=== PATIENT | female | born 1960 | race Caucasian/White ===

== ENCOUNTER 2024-05-24 16:50 | Inpatient (IN) | payer BC, SELFPAY ==
[2024-05-24 17:28] VITALS: BP 119/72; PULSE 125; RESP 22; TEMP 39.5; O2SAT 96; BMI 49.9
--- NOTE | 2024-05-24 17:29 | PC.NURSE ---
sepsis alert called
[2024-05-24 17:40] VITALS: BP 115/79; PULSE 118; RESP 21; TEMP 39.2; O2SAT 95
[2024-05-24 18:05] LABS: Lactate (Lactic Acid) 1.6 mMol/L (0.4-2.0)
[2024-05-24 18:07] LABS: Basophils % (Auto) 0 % (0-2.5); Eosinophils % (Auto) 0 % (0-10); Hematocrit 39.7 % (36.0-46.0); Hemoglobin 13.4 g/dL (12.0-16.0); Immature Granulocytes % (Auto) 1 % (0-0); Immature Granulocytes Auto 0.05 Thou/mm3 (0.00-0.00); Lymphocytes # (Auto) 0.4 Thou/mm3 (1.0-4.8); Lymphocytes % (Auto) 4 % (10-50); Mean Corpuscular HGB Conc 33.8 g/dl (31.0-37.0); Mean Corpuscular Hemoglobin 27.7 pg (25.0-35.0); Mean Corpuscular Volume 82 fL (80-100); Monocytes # (Auto) 0.8 Thou/mm3 (0.0-0.8); Monocytes % (Auto) 8 % (0-12); Neutrophils # (Auto) 9.4 Thou/mm3 (1.8-7.7); Neutrophils % (Auto) 88 % (37-80); Nucleated Red Blood Cell % 0 /100 WBC (0); Platelet Count 193 Thou/mm3 (140-440); RDW Standard Deviation 44.4 fL (36.4-46.3); Red Blood Count 4.84 Miln/mm3 (4.00-5.20); White Blood Count 10.6 Thou/mm3 (3.6-11.0)
--- NOTE | 2024-05-24 18:23 | PD.EDFEVER ---
ED Fever RME/HPI General Chief Complaint: General Adult/Misc Complain Stated Complaint: UTI, SENT TO R/O SEPSIS Time Seen by Provider: 05/24/24 17:02 Arrival date/time: 05/24/24 16:50 RME / HPI RME / HPI Narrative: This section includes all my notes and documentations, including HPI, PE, and ED course. Hernando Messina MD HPI: 63-year-old female here with about 24-hour history of fever and severe chills and bodyaches and malaise. Equivocal dysuria and urinary frequency. No significant back pain or flank pain or abdominal pain. No other complaints. ROS: All negative except as documented in HPI. Physical Exam: General: Alert and oriented. Appearance of malaise noted. Fever noted. Eyes: Conjunctivae and lids clear. ENT: No nasal congestion. Neck: Supple. Heart: RRR. Lungs: No respiratory distress. Good air movement. No rhonchi, wheezing, rales. Abdomen: Soft and nontender. Normal bowel sounds. No distension. No rebound or guarding. Back: No CVA tenderness. Skin: Warm and dry. Neuro: Alert and oriented X 3. I reviewed all diagnostic test results. My interpretation of the chest x-ray is no acute findings. My review of the abdominal CT report is left pyelonephritis. Blood tests remarkable for ESR 58, CRP 22.1. UA showed leukocyte esterase, WBC, and bacteria. At this point, diagnoses include pyelonephritis. Treatment here included IV fluid, Zofran, Tylenol, Toradol, and Rocephin. Some improvement noted. I discussed the case with Dr. Shetty. About the presentation and exam and diagnostics and treatments here. And need of further care in the hospital. Will accept the patient. Hernando Messina MD Related Data Allergies Allergy/AdvReac Type Severity Reaction Status Date / Time No Known Allergies Allergy Verified 05/24/24 16:52 Course Quality Measures none Orders Category Date Time Status Admit to Inpatient Status Routine Admission 05/24/24 21:55 Active Bedside COVID-19 Antigen Test NOW Care 05/24/24 17:32 Active Bedside Influenza A&B Antigen Test NOW Care 05/24/24 17:32 Completed COVID-19 Screening Questionnaire NOW Care 05/24/24 21:51 Active Decision to Admit X1 Care 05/24/24 21:51 Completed Insert IV NOW Care 05/24/24 17:32 Active Straight [In and Out Catheter] X1 Care 05/24/24 18:23 Active Diet Regular Diet 05/25/[address] abdomen pelvis wo con Stat Exams 05/24/24 18:26 Completed XR chest 1V portable Stat Exams 05/24/24 18:26 Completed Blood Culture (Lab) Stat Lab 05/24/24 17:40 Received C-Reactive Protein Stat Lab 05/24/24 17:40 Completed CBC Stat Lab 05/24/24 17:40 Completed Comprehensive Metabolic Panel Stat Lab 05/24/24 17:40 Completed Lactate (Lactic Acid) Stat Lab 05/24/24 17:40 Completed Magnesium Stat Lab 05/24/24 17:40 Completed Procalcitonin Stat Lab 05/24/24 17:40 Completed Sed Rate (ESR) Stat Lab 05/24/24 17:40 Completed Urinalysis Stat Lab 05/24/24 19:47 Completed Urine Culture Stat Lab 05/24/24 19:47 Received Acetaminophen Ivpb [Ofirmev Inj] Med 05/24/24 18:24 Discontinued 1,000 mg in 100 ml IV X1 Ketorolac Inj [Toradol Inj] Med 05/24/24 18:24 Discontinued 30 mg IVP X1 ONE Ondansetron Inj [Zofran Inj] Med 05/24/24 21:24 Discontinued 4 mg IV X1 ONE Piper/Tazo 3.375 gm Premix [Zosyn] Med 05/25/24 00:00 Active 3.375 gm in 50 ml IV Q6HR Sodium Chloride 0.9% 1000 ml [Ns] 1,000 ml Med 05/24/24 21:58 Active IV 100 mls/hr Sodium Chloride 0.9% 1000 ml [Ns] 1,000 ml Med 05/24/24 17:32 Discontinued IV 999 mls/hr Sodium Chloride 0.9% 1000 ml [Ns] 1,000 ml Med 05/24/24 18:24 Discontinued IV 999 mls/hr Sodium Chloride 0.9% 1000 ml [Ns] 1,000 ml Med 05/24/24 18:25 Discontinued IV 999 mls/hr cefTRIAXone [Rocephin] 1,000 mg Med 05/24/24 18:24 Discontinued SODIUM CHLORIDE 0.9% (Popper) [Ns 0.9% (P)] 50 ml IV X1 Code Status Routine Oth 05/24/24 21:54 Ordered Vital Signs Vital signs: Vital Signs Temperature 103.1 F H 05/24/24 17:28 Pulse Rate 125 H 05/24/24 17:28 Respiratory Rate 22 H 05/24/24 17:28 Blood Pressure 119/72 05/24/24 17:28 Pulse Oximetry (%) 96 05/24/24 17:28 Oxygen Delivery Method Room Air 05/24/24 17:28 Fever Patient data External records reviewed:: None Clinical information provided by:: patient Social determinants that could affect healthcare access:: none Patient has the following chronic illnesses:: None How is presenting disease/condition affected by chronic disease/condition?: no chronic disease Evaluation data The following diagnostics were reviewed and interpreted by me:: lab results and radiology exam(s) Lab and/or radiology exams considered but not ordered:: None Interpretation Summary: Pyelonephritis Medications / Prescriptions Medications or Prescriptions considered but not ordered:: None Medication administrations:: Medication Administration History Sodium Chloride (Ns) 1,000 mls @ 100 mls/hr IV .Q10H JULIANO Stop: 06/23/24 21:57 Last Admin: 05/24/24 22:44 Dose: 100 mls/hr Documented By: ELHAM Piperacillin/Tazobactam/Dextrose (Zosyn) 3.375 gm in 50 mls @ 100 mls/hr IV Q6HR JULIANO Stop: 06/01/24 00:00 Last Admin: 05/24/24 23:42 Dose: 100 mls/hr Documented By: AZAEL Discontinued Medications Sodium Chloride (Ns) 1,000 mls @ 999 mls/hr IV .Q1H1M ONE Stop: 05/24/24 18:32 Last Infusion: 05/24/24 19:35 Dose: Infused Documented By: Admin: 05/24/24 18:34 Dose: 999 mls/hr Documented By: ARABELLA Acetaminophen (Ofirmev Inj) 1,000 mg in 100 mls @ 250 mls/hr IV X1 ONE Stop: 05/24/24 18:47 Last Infusion: 05/24/24 19:24 Dose: Infused Documented By: Admin: 05/24/24 19:00 Dose: 250 mls/hr Documented By: ARABELLA Ceftriaxone Sodium 1,000 mg/ (Sodium Chloride) 50 mls @ 100 mls/hr IV X1 ONE Stop: 05/24/24 18:53 Last Infusion: 05/24/24 19:20 Dose: Infused Documented By: Admin: 05/24/24 18:50 Dose: 100 mls/hr Documented By: ARABELLA Sodium Chloride (Ns) 1,000 mls @ 999 mls/hr IV .Q1H1M ONE Stop: 05/24/24 19:24 Last Infusion: 05/24/24 21:15 Dose: Infused Documented By: Admin: 05/24/24 19:54 Dose: 999 mls/hr Documented By: ELHAM Sodium Chloride (Ns) 1,000 mls @ 999 mls/hr IV .Q1H1M ONE Stop: 05/24/24 19:25 Last Infusion: 05/24/24 21:32 Dose: Infused Documented By: Admin: 05/24/24 20:34 Dose: 999 mls/hr Documented By: ELHAM Ketorolac Tromethamine (Ketorolac Inj 30 Mg/Ml Vial) 30 mg IVP X1 ONE Stop: 05/24/24 18:25 Last Admin: 05/24/24 18:51 Dose: 30 mg Documented By: ARABELLA Ondansetron HCl (Ondansetron Inj 2 Mg/Ml Inj 2 Ml) 4 mg IV X1 ONE; Protocol Stop: 05/24/24 21:25 Last Admin: 05/24/24 21:39 Dose: 4 mg Documented By: ELHAM Treatment from nj here included IV fluid, Zofran, Tylenol, Toradol, and Rocephin. Consultations Consultation(s) initiated? (list below): No Diagnosis Fever Differential Diagnosis: cellulitis, fever of unknown origin, gastroenteritis, community acquired pneumonia, pyelonephritis, viral infection, sepsis and influenza Most likely diagnosis given after review of the tests above:: Pyelonephritis Admission Indicated Admission indicated?: indicated Explain why admission is indicated or not indicated:: Pyelonephritis with fever and pending sepsis Admission Request Was there a request for admission?: Yes Admission Attestation Admission request attestation: Discussed case with Dr. Shetty regarding admission. Discussed patients ED course, exam findings, labs, and radiology results. Agrees to accept the patient for admission. Disposition Plan Disposition Plan: Admit Discharge Plan Plan Patient Disposition: Admit Acute Care w/in Hospital Disposition Comment: MED/SURG Patient condition on transfer: Stable Problem List Clinical Impression: Pyelonephritis
--- NOTE | 2024-05-24 18:26 | XR_ITS ---
Examination: CT abdomen and pelvis without contrast. Coronal 3-D reconstructions. Sagittal 2-D reconstructions. Date and time of exam:May 24, 2024 1948 hours INDICATIONS: Onset abdominal pain today CTDI: vol (mGy): 24.5 DLP: (mGycm): 1576 Technique: Axial images of the abdomen have been obtained, 3 mm slice thickness Intravenous contrast material has not been administered. Low dose protocols were performed. One or more of the following dose reduction techniques were used; automated exposure control, adjustment of the mA and/or KV according to patient size, use of iterative reconstruction technique. Findings: No focal liver or splenic lesions No pancreatic mass Bilateral parapelvic cysts [id number] left hydronephrosis with perinephric stranding, no ureteral calculi Aorta normal size Normal appendix No bowel obstruction No bladder mass IMPRESSION: Findings most consistent with left pyelonephritis including [id number] left hydronephrosis and perinephric stranding, clinical correlation advised No ureteral calculi
--- NOTE | 2024-05-24 18:26 | XR_ITS ---
Examination: AP chest single view TECHNIQUE: AP portable upright chest single view Standing spine: May 24, 2024 1919 hours Comparison October 19, 2007 INDICATIONS: Shortness of breath today. FINDINGS: Normal heart size. Lungs are clear. The osseous structures are intact IMPRESSION: No active disease
[2024-05-24] MEDS: SODIUM CHLORIDE 0.9% 1000 ML 1,000 ML 999 ML IV ×3 (18:34→20:34)
[2024-05-24] MEDS: cefTRIAXone 1,000 MG in SODIUM CHLORIDE 0.9% (Popper) 50 ML 100 MG IV (18:50)
[2024-05-24 18:51] VITALS: TEMP 39.2
[2024-05-24] MEDS: KETOROLAC INJ 30 MG/ML VIAL IVP (18:51)
[2024-05-24] MEDS: ACETAMINOPHEN IVPB 1,000 MG/100 ML VIAL 250 MG IV (19:00)
[2024-05-24 19:23] LABS: Alanine Aminotransferase 42 U/L (10-49); Albumin, Serum 4.2 gm/dL (3.4-4.8); Albumin/Globulin Ratio 1.6 (1.2-2.2); Alkaline Phosphatase 75 U/L (46-116); Anion Gap 11 (7-16); Aspartate Amino Transferase 44 U/L (0-34); BUN/Creatinine Ratio 13 Ratio (12-20); Bilirubin,Total 0.7 mg/dL (0.3-1.2); Blood Urea Nitrogen 16 mg/dL (9-23); Calcium 9.2 mg/dL (8.3-10.6); Calcium (Corrected) 9.2 mg/dL (8.5-10.1); Carbon Dioxide 24.2 mMol/L (20.0-31.0); Chloride 103 mMol/L (98-107); Creatinine (Component) 1.2 mg/dL (0.6-1.3); Globulin 2.6 gm/dL (2.3-3.5); Glucose 107 mg/dL (74-106); Osmolality,Calculated 276 (275-295); Potassium 3.7 mMol/L (3.4-5.1); Procalcitonin 0.69 ng/ml (0.0-0.49); Sodium 138 mMol/L (136-145); Total Protein 6.8 gm/dL (5.7-8.2); eGFR 51 See Note
[2024-05-24 19:29] LABS: Sed Rate (ESR) 58 mm/hr (0-30)
[2024-05-24 19:47] LABS: C-Reactive Protein 22.1 mg/dL (0.0-0.9); Magnesium 1.6 mg/dL (1.6-2.6)
[2024-05-24 19:50] VITALS: BP 114/87; PULSE 103; RESP 18; TEMP 37.3; O2SAT 96
[2024-05-24 20:01] LABS: Collection Type, Urine Clean Catch
[2024-05-24 20:25] LABS: Bacteria,Urine 1+; Bilirubin,Urine Negative (Negative); Blood,Urine 1+ (Negative); Clarity,Urine Turbid (Clear/Hazy); Color,Urine Yellow (Lt Yel-Yel); Glucose, Urine Negative (Negative); Ketones,Urine 1+ (Negative); Leukocyte Esterase,Urine Positive (Negative); Nitrite,Urine Positive (Negative); PH,Urine 6.5 (5.0-7.0); Protein,Urine 1+ (Neg - Trace); RBC,Urine 7 /hpf (0-3); Specific Gravity,Urine 1.011 (1.001-1.035); Squamous Epithelial Cell,Urine 3 /hpf (0-5); Urobilinogen,Urine Negative mg/dL (0.0-1.0); WBC,Urine 448 /hpf (0-5)
[2024-05-24] MEDS: ONDANSETRON INJ 2 MG/ML INJ 2 ML 4 MG IV (21:39)
--- NOTE | 2024-05-24 22:00 | ESHP_ITS ---
Documentation for date of: 05/25/24 [facility] History of Present Illness Chief complaint: Fever and chills History of present illness: 63-year-old female with no significant past medical history presented to the hospital with chief complaints of burning micturition, fever and bodyaches. Patient was apparently normal 3 days back since then patient started to have burning micturition for which she took cranberry juice, Azo following which the burning micturition was resolved but on the day of admission, patient developed chills for which she had a televisit with her doctor and later he referred her to go to the ED based on her current condition. Patient also stated that on the day of admission she had fever at home. Also stated that she had an episode of vomiting on the day of admission. Denies back pain, lower abdominal pain, shortness of breath, chest pain, palpitations. ED course: -Vitals at the time of admission showed blood pressure 119/72 mmHg, pulse rate 125 bpm, respiratory rate 22/min, temperature 103.1 ?F -Labs showed WBC 10.6, Hb 13.4, platelets 193, sodium 138, potassium 3.7, chloride 103, bicarb 24.2, BUN 16, creatinine 1.2, Procalcitonin is 0.69 -Urine analysis showed turbid urine with 1+ proteinuria, 1+ ketones, 1+ blood, positive nitrites, 448 WBC, 1+ bacteria -In the ED patient received ceftriaxone, ketorolac, IV fluids per sepsis protocol Past medical history: Nil significant Past surgical history: Cholecystectomy Social history: Denies smoking, alcohol, other illicit drug abuse Allergies: NKDA Review of Systems Review of Systems Narrative Review of Systems: Constitutional: No Weight Change, Fever, Chills, No Night Sweats, Fatigue, Malaise ENT/Mouth: No Hearing Changes, No Ear Pain, No Nasal Congestion, No Sinus Pain, No Hoarseness, No sore throat, No Rhinorrhea, No Swallowing Difficulty Eyes: No Eye Pain, No Swelling, No Redness, No Foreign Body, No Discharge, No Vision Changes Cardiovascular: No Chest Pain, No SOB, No PND, No Dyspnea on Exertion, No Orthopnea, No Edema, No Palpitations Respiratory: No Cough, No Sputum, No Wheezing, No Dyspnea Gastrointestinal: No Nausea, No Vomiting, No Diarrhea, No Constipation, No Pain, No Heartburn, No Anorexia, No Dysphagia, No Hematochezia, No Melena, No Flatulence, No Jaundice Genitourinary: No Dysuria, No Urinary Frequency, No Hematuria, No Urinary Incontinence, No Urgency, No Flank Pain, No Urinary Flow Changes, No Hesitancy Musculoskeletal: No Arthralgias, No Myalgias, No Joint Swelling, No Joint Stiffness, No Back Pain, No Neck Pain, No Injury History Skin: No Skin Lesions, No Pruritis Neuro: No Weakness, No Numbness, No Paresthesias, No Loss of Consciousness, No Syncope, No Dizziness, No Headache, No Coordination Changes, No Recent Falls Exam Vital Signs Temp Pulse Resp BP Pulse Ox O2 Del Method 98.7 F 85 18 117/70 96 Room Air 05/25/24 04:00 05/25/24 04:00 05/25/24 04:00 05/25/24 04:00 05/25/24 04:00 05/25/24 04:00 Narrative Exam General: Awake. Morbidly obese HEENT: Normocephalic, atraumatic, mucous membranes moist. Heart: Regular rate and rhythm, no murmurs. Lungs: Clear to auscultation with no wheezing or crackles. Abdomen: Soft, nondistended, nontender, positive bowel sounds. ?No guarding or rebound tenderness. Neurologic: Alert and oriented x3, no gross neurological deficit, and patient able to move all 4 extremities. Extremities: No edema. Skin: No rash or ecchymoses. Results: Labs 05/26/24 05:01 05/26/24 05:01 Labs: Short CBC 05/24/24 Range/Units 17:40 WBC 10.6 (3.6-11.0) Thou/mm3 Hgb 13.4 (12.0-16.0) g/dL Hct 39.7 (36.0-46.0) % Plt Count 193 (140-440) Thou/mm3 BMP 05/24/24 17:40 Sodium 138 Potassium 3.7 Chloride 103 Carbon Dioxide 24.2 BUN 16 Creatinine 1.2 Glucose 107 H Calcium 9.2 Liver Function 05/24/24 Range/Units 17:40 Total Bilirubin 0.7 (0.3-1.2) mg/dL AST 44 H (0-34) U/L ALT 42 (10-49) U/L Alkaline Phosphatase 75 (46-116) U/L Albumin 4.2 (3.4-4.8) gm/dL Urine 05/24/24 Range/Units 19:47 Urine Color Yellow (Lt Yel-Yel) Urine Clarity Turbid A (Clear/Hazy) Urine pH 6.5 (5.0-7.0) Ur Specific [place] 1.011 (1.001-1.035) Urine Protein 1+ A (Neg - Trace) Urine Glucose (UA) Negative (Negative) Quality Measures Quality Measures none Medications Home Medications and Allergies Allergies Allergy/AdvReac Type Severity Reaction Status Date / Time No Known Allergies Allergy Verified 05/24/24 16:52 Visit Medications Sodium Chloride (Ns) 1,000 mls @ 100 mls/hr IV .Q10H JULIANO Stop: 06/23/24 21:57 Last Admin: 05/24/24 22:44 Dose: 100 mls/hr Piperacillin/Tazobactam/Dextrose (Zosyn) 3.375 gm in 50 mls @ 100 mls/hr IV Q6HR JULIANO Stop: 06/01/24 00:00 Last Admin: 05/25/24 06:00 Dose: 100 mls/hr Discontinued Medications Sodium Chloride (Ns) 1,000 mls @ 999 mls/hr IV .Q1H1M ONE Stop: 05/24/24 18:32 Last Infusion: 05/24/24 19:35 Dose: Infused Acetaminophen (Ofirmev Inj) 1,000 mg in 100 mls @ 250 mls/hr IV X1 ONE Stop: 05/24/24 18:47 Last Infusion: 05/24/24 19:24 Dose: Infused Ceftriaxone Sodium 1,000 mg/ (Sodium Chloride) 50 mls @ 100 mls/hr IV X1 ONE Stop: 05/24/24 18:53 Last Infusion: 05/24/24 19:20 Dose: Infused Sodium Chloride (Ns) 1,000 mls @ 999 mls/hr IV .Q1H1M ONE Stop: 05/24/24 19:24 Last Infusion: 05/24/24 21:15 Dose: Infused Sodium Chloride (Ns) 1,000 mls @ 999 mls/hr IV .Q1H1M ONE Stop: 05/24/24 19:25 Last Infusion: 05/24/24 21:32 Dose: Infused Ketorolac Tromethamine (Ketorolac Inj 30 Mg/Ml Vial) 30 mg IVP X1 ONE Stop: 05/24/24 18:25 Last Admin: 05/24/24 18:51 Dose: 30 mg Ondansetron HCl (Ondansetron Inj 2 Mg/Ml Inj 2 Ml) 4 mg IV X1 ONE; Protocol Stop: 05/24/24 21:25 Last Admin: 05/24/24 21:39 Dose: 4 mg Assessment & Plan Plan 63-year-old female with no significant past medical history presented to the hospital with complaints of fever, burning micturition and chills # Sepsis # Secondary to left pyelonephritis # Gram-negative bacteremia -Presented to the hospital with complaints of fever with chills, burning micturition since 3 days -Burning micturition relieved after taking Azo -Patient fits into sepsis criteria = pulse rate 125, respiratory rate 22, temperature 103.1 ?F + UTI/pyelonephritis -Urine analysis showed turbid urine with 1+ proteinuria, 1+ ketonuria, 1+ blood, 448 WBC, 1+ bacteria,procalcitonin is elevated -Abdomen/pelvis CT showedMild to moderate left hydronephrosis with perinephric stranding, no ureteral calculi with findings consistent with left pyelonephritis -Patient received fluids according to sepsis protocol in the ED Plan -Blood cultures sent -Started on Zosyn [05/24- -Will modify antibiotics according to the culture -Zofran as needed # REYES versus CKD -Baseline creatinine is 0.9 in 2018 -Creatinine at the time of admission is 1.2 Plan -Will continue to monitor renal functions -Will measure urine albumin creatinine ratio in outpatient setting after urinary tract infection is resolved -Avoid nephrotoxic medications and renally dose medications Hospital Maintenance: Dispo: MedSurg DVT ppx: Lovenox GI ppx: Not needed Diet: Regular IV lines: Peripheral Code status: Full code Patient plan of care was discussed with the attending physician, Dr. Diogenes Rankin, PGY1 Attending Provider Attestation/Addendum Patient seen and examined with resident physician Dr. Ryan. Note reviewed, agree with findings and recommendations. Patient admitted with weakness and noted to have pyelonephritis. Was started on IV fluids, broad-spectrum antibiotic pending cultures. CT abdomen showed pyelonephritis. No hydronephrosis. Estimated length of stay 2 to 3 days DVT prophylaxis ambulate GI prophylaxis not needed Disposition Home
[2024-05-24] MEDS: SODIUM CHLORIDE 0.9% 1000 ML 1,000 ML 100 ML IV (22:44)
[2024-05-24 23:11] VITALS: BMI 53.4
[2024-05-24] MEDS: PIPER/TAZO 3.375 GM PREMIX 3.375 GM/50 ML BAG IV (23:42)
[2024-05-25] VITALS: BP 119/74; PULSE 92; RESP 18; TEMP 36.7; O2SAT 96
[2024-05-25 04:00] VITALS: BP 117/70; PULSE 85; RESP 18; TEMP 37.1; O2SAT 96
[2024-05-25] MEDS: PIPER/TAZO 3.375 GM PREMIX 3.375 GM/50 ML BAG IV ×4 (06:00→23:39)
[2024-05-25 08:00] VITALS: BP 128/71; PULSE 84; RESP 16; TEMP 36.6; O2SAT 96
[2024-05-25 12:00] VITALS: BP 127/73; PULSE 82; RESP 18; TEMP 36.2; O2SAT 95
[2024-05-25] MEDS: SODIUM CHLORIDE 0.9% 1000 ML 1,000 ML 100 ML IV ×2 (12:09→23:37)
--- NOTE | 2024-05-25 12:31 | PC.SS ---
Doris Zapata is 63-year-old female admitted to Med-Surg for Pyelonephritis. SS conducted bedside contact with the patient to complete initial assessment and to discuss discharge planning.? Patient confirmed demographic information. Patient identifies her sister Ying Flanagan [phone] ?as her surrogate decision maker. Patient resides at home alone, (pt reports recently passed on Thursday). Pt states she is able to complete all ADL?s independently, no need for any source of DME. Pts PCP is Dr. Shetty and her pharmacy of choice is [facility]. DC options discussed Pts family will provide transportation upon DC. No further intervention required at this time, social media content manager would be available to address any further concerns. DC Plan: Home Contact: Sister Ying PCP: Diogenes
[2024-05-25 16:00] VITALS: BP 128/79; PULSE 91; RESP 16; TEMP 37.1; O2SAT 95
[2024-05-25] MEDS: ONDANSETRON INJ 2 MG/ML INJ 2 ML 4 MG IV (18:01)
[2024-05-25] MEDS: ACETAMINOPHEN 325 MG TABLET 650 MG PO (18:01)
--- NOTE | 2024-05-25 18:12 | PD.RESPRO ---
Documentation for date of: 05/25/24 Subjective Subjective Interval history: Patient is seen and examined at bedside. No acute overnight events. No further febrile episodes noted. Reported that she is feeling better since yesterday Will continue antibiotics for now Exam Vital Signs Temp Pulse Resp BP Pulse Ox O2 Del Method 98.7 F 91 16 128/79 95 Room Air 05/25/24 16:00 05/25/24 16:00 05/25/24 16:00 05/25/24 16:00 05/25/24 16:00 05/25/24 16:00 Narrative Exam General: Awake. Morbidly obese HEENT: Normocephalic, atraumatic, mucous membranes moist. Heart: Regular rate and rhythm, no murmurs. Lungs: Clear to auscultation with no wheezing or crackles. Abdomen: Soft, nondistended, nontender, positive bowel sounds. ?No guarding or rebound tenderness. Neurologic: Alert and oriented x3, no gross neurological deficit, and patient able to move all 4 extremities. Extremities: No edema. Skin: No rash or ecchymoses. Objective Labs 05/26/24 05:01 05/26/24 05:01 Labs: Laboratory Results - last 24 hr 05/24/24 05/24/24 17:40 19:47 ESR 58 H Sodium 138 Potassium 3.7 Chloride 103 Carbon Dioxide 24.2 Anion Gap 11 BUN 16 Creatinine 1.2 Estim Creat Clear Calc 68.0 eGFR 51 L BUN/Creatinine Ratio 13 Glucose 107 H Calculated Osmolality 276 Lactic Acid 1.6 Calcium 9.2 Corrected Calcium 9.2 Magnesium 1.6 Total Bilirubin 0.7 AST 44 H ALT 42 Alkaline Phosphatase 75 C-Reactive Prot, Quant 22.1 H Total Protein 6.8 Albumin 4.2 Globulin 2.6 Albumin/Globulin Ratio 1.6 Procalcitonin 0.69 H Ur Collection Type Clean Catch Urine Color Yellow Urine Clarity Turbid A Urine pH 6.5 Ur Specific [place] 1.011 Urine Protein 1+ A Urine Glucose (UA) Negative Urine Ketones 1+ A Urine Blood 1+ A Urine Nitrite Positive Urine Bilirubin Negative Urine Urobilinogen (Auto) Negative Ur Leukocyte Esterase Positive Urine RBC 7 H Urine WBC 448 H Ur Squamous Epith Cells 3 Urine Bacteria 1+ A Quality Measures Quality Measures none Assessment & Plan Assessment Current Active Medications: Generic Name Dose Route Start Last Admin Trade Name Freq PRN Reason Stop Dose Admin Acetaminophen 650 mg 05/25/24 17:45 05/25/24 18:01 Acetaminophen 325 Mg Tablet PO 06/24/24 17:44 650 mg Q6HR PRN Administration Fever >101 and pain 1-3 Enoxaparin Sodium 40 mg 05/25/24 18:15 Enoxaparin Sod Inj 40 Mg/0.4 Ml Syringe SC 06/08/24 18:14 QDAY JULIANO Sodium Chloride 1,000 mls @ 100 mls/hr 05/24/24 21:58 05/25/24 12:09 Ns IV 06/23/24 21:57 100 mls/hr .Q10H JULIANO Administration Piperacillin/Tazobactam/Dextrose 3.375 gm in 50 mls @ 100 mls/hr 05/25/24 00:00 05/25/24 17:41 Zosyn IV 06/01/24 00:00 100 mls/hr Q6HR JULIANO Administration Ondansetron HCl 4 mg 05/25/24 17:46 05/25/24 18:01 Ondansetron Inj 2 Mg/Ml Inj 2 Ml IV 06/24/24 17:45 4 mg Q6HR PRN Administration NAUSEA OR VOMITING Protocol Plan 63-year-old female with no significant past medical history presented to the hospital with complaints of fever, burning micturition and chills # Sepsis # Secondary to left pyelonephritis # Gram-negative bacteremia -Presented to the hospital with complaints of fever with chills, burning micturition since 3 days -Burning micturition relieved after taking Azo -Patient fits into sepsis criteria = pulse rate 125, respiratory rate 22, temperature 103.1 ?F + UTI/pyelonephritis -Urine analysis showed turbid urine with 1+ proteinuria, 1+ ketonuria, 1+ blood, 448 WBC, 1+ bacteria,procalcitonin is elevated -Abdomen/pelvis CT showedMild to moderate left hydronephrosis with perinephric stranding, no ureteral calculi with findings consistent with left pyelonephritis -Patient received fluids according to sepsis protocol in the ED Plan -Blood cultures grew gram-negative rods -Started on Zosyn [05/24- -Will modify antibiotics according to the culture -Zofran as needed # REYES versus CKD -Baseline creatinine is 0.9 in 2018 -Creatinine at the time of admission is 1.2 Plan -Will continue to monitor renal functions -Will measure urine albumin creatinine ratio in outpatient setting after urinary tract infection is resolved -Avoid nephrotoxic medications and renally dose medications Hospital Maintenance: Dispo: MedSurg DVT ppx: Lovenox GI ppx: Not needed Diet: Regular IV lines: Peripheral Code status: Full code Patient plan of care was discussed with the attending physician, Dr. Diogenes Rankin, PGY1 Attending Provider Attestation/Addendum Patient seen and examined with resident physician Dr. Ryan. Note reviewed, agree with findings and recommendations. Patient admitted with weakness and noted to have pyelonephritis. Was started on IV fluids, broad-spectrum antibiotic pending cultures. CT abdomen showed pyelonephritis. No hydronephrosis. Estimated length of stay 2 to 3 days DVT prophylaxis ambulate GI prophylaxis not needed Disposition Home
[2024-05-25] MEDS: ENOXAPARIN SOD INJ 40 MG/0.4 ML SYRINGE SC (19:21)
[2024-05-25 20:00] VITALS: BP 135/67; PULSE 94; RESP 16; TEMP 36.6; O2SAT 95
[2024-05-26] VITALS: BP 151/103; PULSE 79; RESP 18; TEMP 36.8; O2SAT 96
[2024-05-26] MEDS: ONDANSETRON INJ 2 MG/ML INJ 2 ML 4 MG IV (00:10)
[2024-05-26] MEDS: ACETAMINOPHEN 325 MG TABLET 650 MG PO (00:13)
[2024-05-26 04:00] VITALS: BP 140/83; PULSE 74; RESP 18; TEMP 36.5; O2SAT 95
[2024-05-26] MEDS: PIPER/TAZO 3.375 GM PREMIX 3.375 GM/50 ML BAG IV ×2 (05:05→12:17)
[2024-05-26 06:15] LABS: Basophils % (Auto) 0 % (0-2.5); Eosinophils % (Auto) 1 % (0-10); Hematocrit 33.3 % (36.0-46.0); Hemoglobin 11.1 g/dL (12.0-16.0); Immature Granulocytes % (Auto) 0 % (0-0); Immature Granulocytes Auto 0.01 Thou/mm3 (0.00-0.00); Lymphocytes # (Auto) 0.5 Thou/mm3 (1.0-4.8); Lymphocytes % (Auto) 9 % (10-50); Mean Corpuscular HGB Conc 33.3 g/dl (31.0-37.0); Mean Corpuscular Hemoglobin 27.8 pg (25.0-35.0); Mean Corpuscular Volume 83 fL (80-100); Monocytes # (Auto) 0.6 Thou/mm3 (0.0-0.8); Monocytes % (Auto) 11 % (0-12); Neutrophils # (Auto) 4.2 Thou/mm3 (1.8-7.7); Neutrophils % (Auto) 79 % (37-80); Nucleated Red Blood Cell % 0 /100 WBC (0); Platelet Count 156 Thou/mm3 (140-440); RDW Standard Deviation 45.4 fL (36.4-46.3); White Blood Count 5.3 Thou/mm3 (3.6-11.0)
--- NOTE | 2024-05-26 06:26 | PC.NURSE ---
Dr. Shetty made aware that patient urine culture results returned showing that her urine had gram negative rods. Dr. Shetty said she is already on antibiotics.
[2024-05-26 06:51] LABS: Alanine Aminotransferase 51 U/L (10-49); Albumin, Serum 3.4 gm/dL (3.4-4.8); Albumin/Globulin Ratio 1.5 (1.2-2.2); Alkaline Phosphatase 84 U/L (46-116); Anion Gap 12 (7-16); Aspartate Amino Transferase 57 U/L (0-34); BUN/Creatinine Ratio 14 Ratio (12-20); Bilirubin,Total 0.4 mg/dL (0.3-1.2); Blood Urea Nitrogen 14 mg/dL (9-23); Calcium (Corrected) 8.5 mg/dL (8.5-10.1); Carbon Dioxide 22.4 mMol/L (20.0-31.0); Chloride 109 mMol/L (98-107); Estimated Creatinine Clearance 85.2 mL/min (>60); Globulin 2.3 gm/dL (2.3-3.5); Glucose 97 mg/dL (74-106); Osmolality,Calculated 285 (275-295); Potassium 3.7 mMol/L (3.4-5.1); Sodium 143 mMol/L (136-145); Thyroid Stimulating Hormone 2.06 uIU/mL (0.55-4.78); Total Protein 5.7 gm/dL (5.7-8.2); eGFR > 60 See Note
[2024-05-26 07:22] LABS: Glucose Estimated Average 100 mg/dL (80-131); Hemoglobin A1C 5.1 % Hgb (4.8-6.0)
[2024-05-26 08:00] VITALS: BP 132/69; PULSE 76; RESP 18; TEMP 36.3; O2SAT 97
[2024-05-26] MEDS: SUMAtriptan 25 MG TABLET 100 MG PO (08:23)
[2024-05-26] MEDS: ENOXAPARIN SOD INJ 40 MG/0.4 ML SYRINGE SC (08:23)
[2024-05-26 08:27] LABS: Cholesterol 109 mg/dL (132-200); HDL Cholesterol 36 mg/dL (40-60); LDL Cholesterol,Calculated 56 mg/dL (0-130); Triglycerides 83 mg/dL (30-150)
[2024-05-26 08:31] LABS: Vitamin B12 627 pg/mL (211-911); Vitamin D 25 Hydroxy Total 19.7 ng/mL (7.3-40.2)
[2024-05-26] MEDS: SODIUM CHLORIDE 0.9% 1000 ML 1,000 ML 100 ML IV (09:57)
[2024-05-26 12:00] VITALS: BP 160/76; PULSE 72; RESP 18; TEMP 36.6; O2SAT 93
--- NOTE | 2024-05-26 12:27 | XR_ITS ---
Examination: Abdomen sonogram, Limited Date and time of exam: May 26, 2024 1404 hours INDICATIONS: Elevated liver function tests on laboratory examination today Technique: Real-time nixon scale transabdominal sonographic images of the upper abdomen obtained. Findings: Contracted gallbladder No gallstones Gallbladder wall 0.5 cm Common bile duct 0.4 cm Pancreatic head 1.9 cm Liver 17.1 cm fatty infiltration irregular contour Normal hepatopedal portal venous flow Patent IVC IMPRESSION: Recommend repeating the gallbladder portion of the study with fasting Mild hepatomegaly primary hepatocellular disease
[2024-05-26 13:10] VITALS: BP 143/82
[2024-05-26 14:17] VITALS: BP 143/82; PULSE 72
[2024-05-26] MEDS: Furosemide 20 MG TABLET PO (14:17)
--- NOTE | 2024-05-26 15:27 | PD.RESDS ---
Planned Discharge Date 05/26/24 DS: Providers Provider Date of admission: 05/24/24 21:55 Primary care physician: Kristin Shetty MD Admitting Provider: Kristin Shetty MD Attending Provider on Admission: Kristin Shetty MD Attending Provider on DC: Connor Rankin MD Discharging Provider: Connor Rankin MD DS: Diagnosis Problem List Completed Was Problem List Reviewed/Reconciled?: Yes Hospital Course Hospital Course Hospital course: 63-year-old female with no significant past medical history presented to the hospital with chief complaints of burning micturition, fever and bodyaches and admitted in the hospital for Sepsis Secondary to left pyelonephritis. Vitals at the time of admission are stable except for temperature 103.1 ?F. Labs are within normal limits except for mildly elevated procal and creatinine. Urine analysis showed turbid urine with 1+ proteinuria, 1+ ketones, 1+ blood, positive nitrites, 448 WBC, 1+ bacteria. Abdomen/pelvis CT showed Mild to moderate left hydronephrosis with perinephric stranding, no ureteral calculi with findings consistent with left pyelonephritis. Blood cultures grew gram-negative rods that later showed E. coli which is pansensitive. Patient is treated with fluids and antibiotics during the hospital stay Patient is discharged to the home with the following medications and recommendations -Follow-up with PCP within 1 week of discharge. -Start levofloxacin 500mg p.o EVERY DAY FOR 10DAYS -iMITREX 100MG as needed for headaches -Recommended salt and fluid restriction. -Return to ED if symptoms persist or return # Sepsis # Secondary to left pyelonephritis # Gram-negative bacteremia # REYES, resolved Patient plan of care was discussed with the attending physician, Dr. Diogenes Rankin, PGY1 Status at Discharge Overall status at discharge: patient is back to baseline Time Spent with Patient Time attestation: Total time spent providing and/or coordinating discharge services: Time spent: Greater than 30 minutes Exam Vital Signs Temp Pulse Resp BP Pulse Ox O2 Del Method 97.9 F 72 18 143/82 H 93 L Room Air 05/26/24 12:00 05/26/24 14:17 05/26/24 12:00 05/26/24 14:17 05/26/24 12:00 05/26/24 12:00 Narrative Exam General: Awake. morbidly obese HEENT: Normocephalic, atraumatic, mucous membranes moist. Heart: Regular rate and rhythm, no murmurs. Lungs: Clear to auscultation with no wheezing or crackles. Abdomen: Soft, nondistended, nontender, positive bowel sounds. ?No guarding or rebound tenderness. Neurologic: Alert and oriented x3, no gross neurological deficit, and patient able to move all 4 extremities. Extremities: No edema. Skin: No rash or ecchymoses. Discharge Plan Plan Patient Disposition: HOME (Self Care) Disposition Comment: MED/SURG Patient condition on transfer: Stable Care Plan Goals: -Follow-up with PCP within 1 week of discharge. -Start levofloxacin 500mg p.o EVERY DAY FOR 10DAYS -iMITREX 100MG as needed for headaches -Recommended salt and fluid restriction. -Return to ED if symptoms persist or return Prescriptions/Referrals Prescriptions/Med Rec: New levofloxacin 500 mg tablet 500 mg PO Q24H 10 Days Qty: 10 0RF sumatriptan succinate [Imitrex] 100 mg tablet See Rx Instructions .ROUTE .COMPLEX PRN (Reason: migraine headache) Qty: 8 0RF Rx Instructions: 100 mg orally as needed ;do not exceed 2 doses per 24 hrs Referrals: Kristin Shetty MD [Primary Care Provider] - Patient/Caregiver Discharge Instructions Discharge Activity: activity as tolerated Education Materials: Anatomy of the Female Urinary Tract, ED Pyelonephritis, Female (Adult) Print Language: Albanian Stand Alone Forms: Jessy Award Info., Patient Portal Info Letter Discharge Order Discharge Orders: Discharge (Routine); Ordered 05/26/24 Ordered By: Connor Rankin Quality Discharge Quality Measures VTE prophylaxis MD Attestestation MD Attestation Patient seen and examined with resident physician Dr. Ryan. Note reviewed, agree with findings and recommendations. Patient is going to be discharged today on p.o. antibiotics.
== END 2024-05-26 15:47 | disposition home or self-care (01) | DRG 872 ==
LOC: SERX 21:52 → SERHOLD 22:10 → S3SX 23:12
PROVIDERS: Nurse Practitioner Primary Care; Admitting Provider Internal Medicine; Emergency Provider Emergency Medicine; PCP Internal Medicine; Visit Provider Internal Medicine
DX: A41.51 Sepsis due to Escherichia coli [E. coli] (principal); N10 Acute pyelonephritis; N17.9 Acute kidney failure, unspecified; Z90.49 Acquired absence of other specified parts of digestive tract
CPT/HCPCS: 36415; 71045; 74176; 76705; 80053; 80061; 81001; 82306; 82607; 83036; 83605; 83735; 84145; 84443; 85025; 85652; 86140; 87040; 87077; 87086; 87186; 87400; 87811; 96361; 96365; 96368; 96375; 99285; J0131; J0696; J1650; J1885; J2405; J2543; J7030; J7050; A9270